=== PATIENT | male | born 1965 | race African-American/Black ===

== ENCOUNTER 2019-01-19 10:51 | Emergency (ER) | payer OTHER, SELFPAY ==
[2019-01-19] MEDS ORDERED: Azithromycin 250 MG TAB ONE (12:23)
== END 2019-01-19 12:35 | disposition home or self-care (01) ==
LOC: NAV ERS 10:51
DX: J02.9 Acute pharyngitis, unspecified (principal)
CPT/HCPCS: 87081; 87430; 99283